=== PATIENT | female | born 2005 | race Caucasian/White ===

== ENCOUNTER 2025-06-15 19:11 | Emergency (ER) | payer OTHER, SELFPAY ==
[~2025-06-15] VITALS: Ht 160 cm; Wt 88.7 kg
[2025-06-15] MEDS ORDERED: TRAZ-257 PO (19:17)
[2025-06-15] MEDS ORDERED: DULO1CAP6 PO (19:17)
[2025-06-15] MEDS ORDERED: PRAZ5CAP PO (19:17)
[2025-06-15 20:04] LABS: BASO # 0.0 10^3/uL (0.0-0.2); BASO % 0.4 % (0.0-1.0); EOS # 0.1 10^3/uL (0.0-0.5); EOS % 0.7 % (0.0-3.0); LYMPH # 3.0 10^3/uL (1.5-5.0); LYMPH % 31.5 % (24.0-44.0); MONO # 0.8 10^3/uL (0.0-0.8); MONO % 8.7 % (2.0-8.0); NEUTROPHILS # 5.5 10^3/uL (1.5-8.5); NEUTROPHILS % 58.5 % (36.0-66.0); PLATELET COUNT, AUTOMATED 388 10^3/uL (150-450)
[2025-06-15] MEDS: KETOROLAC 30 MG/ML 1 ML VIAL IV ONE (20:04)
[2025-06-15] MEDS: NS (Normal Saline) 0.9% 1,000 ML IV ONE (20:04)
[2025-06-15 20:37] LABS: ALT/SGPT 13 U/L (7.0-40); AST/SGOT 14 U/L (<34); CALCIUM LEVEL 9.6 MG/DL (8.5-10.1); CARBON DIOXIDE LEVEL 23 MMOL/L (20-31); CHLORIDE LEVEL 107 MMOL/L (98-107); CREATININE FOR GFR 0.59 MG/DL (0.55-1.30); GLOMERULAR FILTRATION RATE > 90.0 (>60); POTASSIUM SERUM 4.2 MMOL/L (3.5-5.1); SODIUM LEVEL 142 MMOL/L (136-145)
[2025-06-15 20:43] LABS: HCG, SERUM QUALITATIVE NEGATIVE (NEGATIVE)
[2025-06-15] MEDS: ONDANSETRON 4MG/2ML VIAL IV ONE (21:14)
[2025-06-15 21:24] LABS: KETONE, URINE AUTO RFX NEGATIVE (NEGATIVE); LEUKOCYTE ESTERASE UR AUTO RFX NEGATIVE (NEGATIVE); MUCUS, URINE RFX SMALL (NEGATIVE); NITRITE, URINE AUTO RFX NEGATIVE (NEGATIVE); RBC, URINE AUTO RFX 4 /HPF (0-3); SQUAM EPITHELIAL CELL UR AURFX 13 /HPF (0-6); WBC, URINE AUTO RFX 10 /HPF (0-3)
[2025-06-15] MEDS: ACETAMINOPHEN *IV* 1,000 MG in IV 1 EA IV ONE (21:33)
[2025-06-15] MEDS: MORPHINE 2 MG/ML 1 ML VIAL IV ONE (21:33)
[2025-06-15 22:00] VITALS: TEMP 98.8
[2025-06-15] MEDS ORDERED: ONDA-282 PO (22:20)
[2025-06-15 22:30] VITALS: BP 121/65; O2SAT 97
[2025-06-15] MEDS: NORCO 5/325MG TABLET (HOME DOSE PACK) PO ONE (22:40)
== END 2025-06-15 22:44 | disposition home or self-care (01) ==
LOC: M ED 19:52
DX: I88.0 Nonspecific mesenteric lymphadenitis (principal); F32.A Depression, unspecified; F43.10 Post-traumatic stress disorder, unspecified; Z88.0 Allergy status to penicillin
CPT/HCPCS: 74176; 80047; 80048; 80076; 81001; 83605; 83690; 84703; 85025; 96361; 96365; 96375; 99284; J0131; J1885; J2405